=== PATIENT | female | born 1970 | race Two or more races ===

== ENCOUNTER → 2020-01-16 | Emergency (ER) | payer SELFPAY ==
[~2020-01-16] VITALS: Ht 157.5 cm; Wt 72.6 kg
[2020-01-16 09:34] VITALS: BP 137/86
--- NOTE | 2020-01-17 20:13 | Emergency Room Report ---
History of Present Illness General Chief Complaint: Pain Present Illness Allergies: Coded Allergies: No Known Allergies (Unverified , 01/16/20) COVID-19 Screening Contact w/high risk pt: No Recent Travel to affected area: No Experienced COVID-19 symptoms?: No Patient History Last Menstrual Period: 12/16/19 Nursing Documentation-[facility] Past Medical History: No Stated History Physical Exam Vital Signs Date Time Temp Pulse Resp B/P (MAP) Pulse Ox O2 Delivery O2 Flow Rate FiO2 01/16/20 09:19 98.2 74 20 137/86 (103) 98 Room Air Medical Decision Making ER Course Patient left without being seen Last Vital Signs Date Time Temp Pulse Resp B/P (MAP) Pulse Ox O2 Delivery O2 Flow Rate FiO2 01/16/20 09:34 98.2 20 137/86 98 Room Air 01/16/20 09:19 74 Disposition: LEFT W/OUT BEING SEEN Condition: Unknown Referrals: NOT CHOSEN IPA/,REFERRING (PCP) Julio César Garcia MD Jan 17, 2020 20:12
== END | disposition left against medical advice (07) ==
LOC: EMR 09:49
DX: Z53.21 Procedure and treatment not carried out due to patient leaving prior to being seen by health care provider (principal)